=== PATIENT | female | born 2000 | race African-American/Black ===

== ENCOUNTER 2020-09-18 11:16 | Emergency (ER) | payer OTHER ==
[~2020-09-18] VITALS: Ht 162.6 cm; Wt 79.0 kg
[2020-09-18] MEDS ORDERED: KETOROLAC 60MG/2ML VIAL IM ONE (11:45)
[2020-09-18] MEDS ORDERED: METHOCARBAMOL 500MG TABLET PO ONE (11:45)
[2020-09-18] MEDS ORDERED: IBUP-2029 MT (12:36)
[2020-09-18] MEDS ORDERED: METH-773 MT (12:36)
[2020-09-18 12:48] VITALS: BP 126/51
== END 2020-09-18 12:49 | disposition home or self-care (01) ==
LOC: ER 11:16
DX: S16.1XXA Strain of muscle, fascia and tendon at neck level, initial encounter (principal); R51.9 Headache, unspecified; J45.909 Unspecified asthma, uncomplicated; X58.XXXA Exposure to other specified factors, initial encounter; Y93.89 Activity, other specified; Y92.89 Other specified places as the place of occurrence of the external cause; Y99.8 Other external cause status
CPT/HCPCS: 81025; 96372; 99283; J1885

== ENCOUNTER 2021-08-05 20:01 | Emergency (ER) | payer MEDICAID, OTHER ==
[~2021-08-05] VITALS: Ht 160 cm; Wt 77.0 kg
[~2021-08-05 20:01] MED LIST: IBUP-2029 MT; METH-773 MT
[2021-08-05] MEDS ORDERED: IBUPROFEN 400MG TABLET PO ONE (21:00)
[2021-08-05] MEDS ORDERED: ACETAMINOPHEN 325MG TABLET PO ONE (21:00)
[2021-08-05 21:35] VITALS: BP 128/80
== END 2021-08-05 23:46 | disposition left against medical advice (07) ==
LOC: ER 20:01
DX: M54.2 Cervicalgia (principal); M79.10 Myalgia, unspecified site; J45.909 Unspecified asthma, uncomplicated; V43.52XA Car driver injured in collision with other type car in traffic accident, initial encounter; Y93.89 Activity, other specified; Y92.488 Other paved roadways as the place of occurrence of the external cause
CPT/HCPCS: 76705; 99284